=== PATIENT | male | born 1975 | race Asian ===

== ENCOUNTER 2024-01-07 14:00 | Emergency (ER) | payer OTHER ==
[2024-01-07 14:16] VITALS: BP 118/76; PULSE 82; RESP 18; TEMP 98; BMI 23.8
[2024-01-07] MEDS ORDERED: IBUPROFEN 400 MG TABLET (FP) PO ONE (15:21)
[2024-01-07] MEDS: IBUPROFEN 400 MG TABLET (FP) PO ONE (15:25)
== END 2024-01-07 16:39 | disposition home or self-care (01) ==
LOC: JERFT 14:00
PROC: 2W3DX1Z Immobilization of Left Lower Arm using Splint (ICD-10-PCS; principal; 2024-01-07)
DX: S52.572A Other intraarticular fracture of lower end of left radius, initial encounter for closed fracture (principal); V28.09XA Other motorcycle driver injured in noncollision transport accident in nontraffic accident, initial encounter
CPT/HCPCS: 73110-TC-LT-FY; 73130-TC-LT-FY; 99283-25